=== PATIENT | female | born 1955 | race Caucasian/White ===

== ENCOUNTER → 2023-03-19 | Outpatient (CLI) | payer MEDICARE, OTHER ==
--- NOTE | 2023-03-19 13:13 | Diagnostic Imaging Report ---
INDICATION: Burning sensation and pain in the medial left breast. COMPARISON: Correlation is made prior mammogram from 08/01/2022. TECHNIQUE: 2D and 3D bilateral diagnostic mammography was performed with CAD. FINDINGS: Both breasts are heterogeneously dense, limiting the sensitivity of mammography. A marker was placed in the medial left breast at the area of pain. No underlying abnormality is identified. There is a benign nodule in the outer right breast, stable. No new mass or malignant-appearing microcalcifications are seen. The axillae are unremarkable. IMPRESSION: No mammographic features suspicious for malignancy are identified. Even so, directed sonographic interrogation of the area of pain in the medial left breast is recommended and will be performed today. ACR BI-RADS Category 0: Incomplete. (Needs additional imaging evaluation). Result letter will be mailed to the patient. Note: At least 10% of breast cancer is not imaged by mammography. Dictated by: Dictated on workstation # [id number]
--- NOTE | 2023-03-19 14:29 | Diagnostic Imaging Report ---
INDICATION: Left breast pain and burning. COMPARISON: Correlation is made with the diagnostic mammogram from earlier this same day. FINDINGS: Sonographic interrogation of the area of pain in the left breast was performed. This corresponds to the outer portion of the left breast. No sonographic abnormality is seen. There is a small echogenic lesion at approximately the 3 o'clock location 4-5 cm from the nipple measuring 6 mm x 4 mm which could represent a small lipoma. No concerning sonographic abnormality is seen. No fluid collection is detected. IMPRESSION: No concerning sonographic abnormality is identified. The patient may return to routine annual screening mammography. ACR BI-RADS Category 2: Benign findings. Dictated by: Dictated on workstation # [id number]
== END ==
LOC: RAD 11:53
PROVIDERS: ATTEND Surgery
DX: N63.25 Unspecified lump in the left breast, overlapping quadrants (principal)
CPT/HCPCS: 76642; 77066; G0279; 77062